=== PATIENT | female | born 1945 | race Asian ===

== ENCOUNTER 2018-10-11 09:33 | Day surgery (SDC) | payer MEDICARE, OTHER ==
[~2018-10-11] VITALS: Ht 152.4 cm; Wt 61.3 kg
[~2018-10-11 09:33] MED LIST: ATORVASTATIN; CHLORTHALIDONE; PRAVASTATIN; VITAMINS; amlodipine
[2018-10-11 10:25] VITALS: Ht 152.4 cm; Wt 61.3 kg
[2018-10-11 10:57] VITALS: BP 181/75; PULSE 51; RESP 18
[2018-10-11] MEDS ORDERED: PROPOFOL 20 ML ONE (11:01)
--- NOTE | 2018-10-11 11:01 | PREAC ---
Date/Time of Note Date/Time of Note DATE: 10/11/18 TIME: 11:00 Anesthesia Eval and Record Evaluation Time Pre-Procedure Interview DATE: 10/11/18 TIME: 11:00 Age 73 Sex female NPO: 8 hrs Preoperative diagnosis stool ocult blood Planned procedure colonoscopy Past Medical History Past Medical History: Includes Cardio: HTN, Dyslipidemia Surgery & Anesthesia Issues No known issue Meds Anticoagulation: No Beta Fermin within 24 hr: No Reason Beta Fermin not given: Pt. not on B-Fermin Reported Medications [Vitamins] No Conflict Check 10/11/18 [Atorvastatin] No Conflict Check 10/11/18 [Chlorthalidone] No Conflict Check 10/11/18 [amlodipine] No Conflict Check 10/11/18 Discontinued Reported Medications [Pravastatin] No Conflict Check 10/11/18 Meds reviewed: Yes Allergies Coded Allergies: Penicillins (Verified Allergy, Unknown, 10/11/18) aspirin (Verified Allergy, Unknown, 10/11/18) latex (Verified Allergy, Unknown, 10/11/18) Allergies Reviewed: Yes Labs/Studies Labs Reviewed: Reviewed by anesthesiologist test: N/A Studies: ECG (n/a), CXR (n/a) Pre-procedure Exam Last vitals Vital Signs Date Temp Pulse Resp B/P (MAP) Pulse Ox O2 O2 Flow FiO2 Time Delivery Rate 10/11/18 98.0 51 18 181/75 98 Room Air 10:57 (110) Airway: Adequate mouth opening Mallampati: Mallampati I Teeth: Normal Lung: Normal Heart: Normal ASA Physical Status ASA physical status: 2 Emergency: None Planned Anesthetic General/MAC: MAC Planned Pain Management Parenteral pain med Pre-operative Attestations Prior to commencing anesthesia and surgery, the patient was re-evaluated, there was verification of: *The patient's identity *The results of appropriate recent lab work and preoperative vital signs *The above evaluation not changing prior to induction *Anesthetic plan, risk benefits, alternative and complications discussed with patient/family; questions answered; patient/family understands, accepts and wishes to proceed. CORA MOORE MD Oct 11, 2018 11:01
[2018-10-11 12:08] VITALS: PULSE 74
--- NOTE | 2018-10-12 10:16 | PAC ---
Date/Time of Note Date/Time of Note DATE: 10/12/18 TIME: 10:16 Post-Anesthesia Notes Post-Anesthesia Note Last documented vital signs Vital Signs Date Temp Pulse Resp B/P (MAP) Pulse Ox O2 O2 Flow FiO2 Time Delivery Rate 10/11/18 98.0 74 20 137/78 98 12:08 10/11/18 98.0 18 181/75 98 Room Air 10:57 (110) Activity: WNL Respiratory function: WNL Cardiovascular function: WNL Mental status: Baseline Pain reasonably controlled: Yes Hydration appropriate: Yes Nausea/Vomiting absent: No CORA MOORE MD Oct 12, 2018 10:16
== END 2018-10-11 14:29 | disposition home or self-care (01) ==
LOC: GIL 09:33
PROVIDERS: ATTEND Internal Medicine Gastroenterology
DX: D12.5 Benign neoplasm of sigmoid colon (principal); K64.8 Other hemorrhoids; D12.0 Benign neoplasm of cecum; I10 Essential (primary) hypertension
CPT/HCPCS: 88305